=== PATIENT | female | born 1990 | race Caucasian/White ===

== ENCOUNTER 2018-10-07 10:26 | Emergency (ER) | payer OTHER ==
[~2018-10-07] VITALS: Ht 167.6 cm; Wt 108.9 kg
[~2018-10-07 10:26] MED LIST: Amoxicillin500 MG PO
[2018-10-07] MEDS ORDERED: Sprintec1 EACH PO (10:53)
[2018-10-07] MEDS ORDERED: NAPR550 PO (11:55)
== END 2018-10-07 12:05 | disposition home or self-care (01) ==
LOC: ER 10:26
DX: S83.91XA Sprain of unspecified site of right knee, initial encounter (principal); W19.XXXA Unspecified fall, initial encounter; Z88.2 Allergy status to sulfonamides; Z87.891 Personal history of nicotine dependence
CPT/HCPCS: 73564; 99283-25

== ENCOUNTER → 2021-04-29 | Outpatient (CLI) | payer OTHER ==
[~2021-04-29] MED LIST changes: +NAPR550 PO; +Sprintec1 EACH PO
[2021-05-01 16:11] LABS: HPV 16 Negative (Negative); HPV 18 Negative (Negative); HPV OTHER HR TYPES Negative (Negative)
== END | disposition home or self-care (01) ==
LOC: LAB SHORT 15:53
PROVIDERS: Advanced Practice Midwife
DX: Z01.419 Encounter for gynecological examination (general) (routine) without abnormal findings (principal)
CPT/HCPCS: 87624; G0123